=== PATIENT | male | born 1970 | race Caucasian/White ===

== ENCOUNTER 2022-11-13 13:53 | Emergency (ER) | payer SELFPAY ==
[2022-11-13] MEDS ORDERED: Diphtheria,Pertussis(Acell),Tetanus Vaccine 0.5 ML Syringe IM ONE (14:14)
== END 2022-11-13 15:07 | disposition home or self-care (01) ==
LOC: MW.ED 13:53
DX: J40 Bronchitis, not specified as acute or chronic (principal); I10 Essential (primary) hypertension; Z23 Encounter for immunization; Z79.899 Other long term (current) drug therapy
CPT/HCPCS: 71045; 71045-26; 90471; 90715; 93005; 93010; 99283; 99285-25